=== PATIENT | male | born 1980 | race Caucasian/White ===

== ENCOUNTER 2019-10-19 13:11 | Emergency (ER) | payer SELFPAY ==
[~2019-10-19 13:11] MED LIST: Iopamidol 370 76% 100 ML VIAL ONE
[2019-10-19] MEDS ORDERED: Sodium Chloride 0.9% 1,000 ML ONE (13:55)
[2019-10-19 13:56] LABS: #Basophils 0.1 thou/uL (0.0-0.2); #Eosinphils 0.2 thou/uL (0.0-0.7); #Lymphocytes 1.5 thou/uL (1.20-3.40); #Monocytes 0.5 thou/uL (0.11-0.59); #Neutrophils 4.6 thou/uL (1.40-6.50); %Basophils 0.8 % (0.0-1.0); %Eosinophils 2.3 % (0.0-10.0); %Lymphocytes 22.5 % (21.0-51.0); %Monocytes 7.5 % (0.0-10.0); %Neutrophils 66.8 % (42.0-75.0); Mean Corpuscular HGB CONC 31.7 g/dL (32.0-36.0); Mean Corpuscular Hemoglobin 30.6 pg (27.0-31.0); Mean Corpuscular Volume 96.5 fL (78.0-98.0); Mean Platelet Volume 7.6 fL (7.4-10.4); Platelet Count 231 thou/uL (130-400); RBC Distribution Width 12.2 % (11.5-14.5); Red Blood Cell (RBC) Count 4.57 mill/uL (4.70-6.10); White Blood Cell (WBC) Count 6.8 thou/uL (4.8-10.8)
[2019-10-19 14:09] LABS: ALT (SGPT) 37 U/L (8-55); AST (SGOT) 16 U/L (5-34); Albumin 4.1 g/dL (3.5-5.0); Alkaline Phosphatase 57 U/L (40-110); Anion Gap 13 mmol/L (10-20); BUN (Urea Nitrogen) 11 mg/dL (8.9-20.6); Bilirubin, Total 0.4 mg/dL (0.2-1.2); Calc. Creatinine Clearance 0 mL/min (70-130); Calcium 9.4 mg/dL (7.8-10.44); Carbon Dioxide 28 mmol/L (22-29); Chloride 104 mmol/L (98-107); Estimated GFR-MDRD Greater than 90; Globulin 3.4 g/dL (2.4-3.5); Glucose 126 mg/dL (70-105); Lipase 16 U/L (8-78); Potassium 3.9 mmol/L (3.5-5.1); Protein, Total 7.5 g/dL (6.0-8.3); Sodium 141 mmol/L (136-145)
--- NOTE | 2019-10-19 15:25 | CT ---
CT Abdomen Pelvis W Con: 10/19/2019 2:26 PM CLINICAL INFORMATION: Right upper quadrant pain for one week COMPARISON: None. TECHNIQUE: Multiple contiguous axial images were obtained and a CT of the abdomen and pelvis with IV contrast. C oronal and sagittal reformats were performed. FINDINGS: Lower Chest: Trace pericardial effusion. Abdomen: Liver: within normal limits. Bile Ducts: Normal caliber. Gallbladder: No calcified gallstones. Normal caliber wall. Pancreas: within normal limits. Spleen: within normal limits. Adrenals: within normal limits. Kidneys: within normal limits. Pelvis: Reproductive Organs: No pelvic masses. Ureters: within normal limits. Bladder: within normal limits. Peritoneum: No ascites or free air, no fluid collection. Bowel: Normal caliber. Normal appendix. Mesentery and Retroperitoneum: No enlarged mesenteric or retroperitoneal lymph nodes. Vessels: Normal. Abdominal Wall: 1.7 cm fat-containing umbilical hernia Bones: Degenerative changes in the spine. IMPRESSION: 1. No evidence of acute intraabdominal or pelvic abnormality. 2. Umbilical hernia
== END 2019-10-19 15:40 | disposition home or self-care (01) ==
LOC: NAV ERS 13:11
DX: B02.9 Zoster without complications (principal); K02.9 Dental caries, unspecified; F31.9 Bipolar disorder, unspecified; F43.10 Post-traumatic stress disorder, unspecified; F17.210 Nicotine dependence, cigarettes, uncomplicated
CPT/HCPCS: 74177; 80053; 83690; 85025; 94760; 96360; J7050; Q9967

== ENCOUNTER 2020-07-28 14:33 | Emergency (ER) | payer OTHER, SELFPAY | END 2020-07-28 16:08 | disposition home or self-care (01) | LOC: NAV ERS 14:33 | DX: S62.610A Displaced fracture of proximal phalanx of right index finger, initial encounter for closed fracture (principal); F17.210 Nicotine dependence, cigarettes, uncomplicated; W01.0XXA Fall on same level from slipping, tripping and stumbling without subsequent striking against object, initial encounter | CPT/HCPCS: 29125 ==